=== PATIENT | male | born 1940 | race Hispanic/Latino ===

== ENCOUNTER → 2019-11-15 | Outpatient (CLI) | payer MEDICARE ==
[~2019-11-15] MED LIST: IOPAMIDOL 370 MG/ML 200 ML INFUS..BTL INJ ONE; METOPROLOL TARTRATE 25 MG TAB ONE; NITROGLYCERIN 0.4 MG SUBL ONE; SODIUM CHLORIDE 0.9% 100 ML ONE; SODIUM CHLORIDE 0.9% 250ML 250 ML ONE; SODIUM CHLORIDE 0.9% 500ML 500 ML ONE
[2019-11-15 08:01] LABS: CREATININE, SERUM 1.27 mg/dL (0.72-1.25)
--- NOTE | 2019-11-16 18:44 | Diagnostic Imaging Report ---
EXAM: CALCIUM SCORE AND CORONARY CTA INDICATION: ^[id number] ^[id number] ^CAD/SOB W EXERTION COMPARISON: None. TECHNIQUE: Multi-detector CT technology was employed ([address] 750 HD 64 MDCT [facility]). Minimal slice thickness was performed following the intravenous administration of contrast material. The patient was premedicated with 25 mg po metoprolol and 0.4 mg sublingual nitroglycerin for heart rate control and coronary dilation, respectively. IV CONTRAST: 100 mL of Isovue 370 ORAL CONTRAST: None COMPLICATIONS: None RADIATION DOSE: Total DLP: 1595 mGy*cm Estimated effective dose: (DLP x 0.015 x size factor) mSv CTDIvol has been reviewed. It is below the limits set by the Radiation Protocol Committee (RPC). For optimization of anatomic evaluation, multiplanar reconstruction, maximum intensity projections, and advanced 3-D off-line postprocessing were performed on a dedicated stand-alone workstation under the direct supervision of the interpreting physician. QUALITY: Very good with. The gallbladder is FINDINGS: CALCIUM SCORE: The observed Agatston Calcium Score of 1423 is at percentile between 75 and 90% for subjects of the same age and gender who are free of clinical cardiovascular disease and treated diabetes. The Agatston score for each vessel is as follows: LM: 48.9 LAD: 423 LCx: 232 RCA: 719 DISTRIBUTION OF THE CALCIFIED PLAQUES: Diffuse calcified plaque throughout the coronary arteries, worse in the mid LAD and proximal/mid RCA. CORONARY ANATOMY: There is normal origin of the coronary arteries. Left Main Coronary Artery: The left main is normal sized vessel that bifurcates into the LAD and circumflex. Mild nonobstructing mixed plaque in the proximal segment. Left Anterior Descending Coronary Artery: The LAD is a normal size vessel that wraps around the apex. It gives rise to 2 acute diagonal branches. Complex mainly calcified plaque within the mid LAD, which is times at the origin of the first diagonal branch and measuring 1.2 cm in length, result in severe stenosis (70-99%). The distal segment is normal in caliber and widely patent without atherosclerotic disease. Left Circumflex Coronary Artery: The LCX is a normal size vessel, which is non-dominant. It gives rise to 1 obtuse marginal branch. Focal noncalcified plaque in the mid-LCx that they be groove results in severe stenosis (70-99%). Mild scattered calcified plaques in the remaining LCx without significant stenosis. Right Coronary Artery: The RCA is a normal size vessel, which is dominant. It gives rise to a conus branch, AV shiva branch, and 2 acute marginal branches. In its distal segment it bifurcates into the PDA and PV branch. Motion artifact limits evaluation of the mid RCA at the AV groove but suspect moderate to severe stenosis (60-70%) due to a mainly calcified plaque. Additional few a scattered nonobstructing calcified plaque throughout the RCA. CARDIAC MORPHOLOGY AND FUNCTION: The right and left atria and ventricles are morphologically normal. There is normal resting global left ventricular systolic function. LVEF: 62.6%, LV end diastolic volume: 117 cc LV end systolic volume: 43.7 cc LV stroke volume: 73.3 cc LIMITED CHEST: Limited views of the visualized chest show no abnormality within chest wall and mediastinum. No mediastinal lymphadenopathy. The main pulmonary artery normal in size, measuring 2.7 cm in diameter. The visualized lungs are clear. The visualized portions of the ascending and descending thoracic aorta are of normal size. LIMITED ABDOMEN: Limited images of the upper abdomen reveal no abnormalities of the visualized organs. BONES: No acute osseous abnormalities. IMPRESSION: 1. Total Agatston Calcium Score: 1423 that corresponds to percentile between 75 and 90%, representing extensive plaque burden. 2. Normal coronary anatomy. 3. Three-vessel significant coronary artery disease as described above. CAD-BOBBY 4B. Reference: [email or web address] These findings were communicated to Dr. Quiroga via text message on 11/16/2019 at 6:30 PM. Signed by: Dr. Divine Reynolds M.D. on 11/16/2019 6:41 PM
== END ==
LOC: CT 07:07
PROVIDERS: ATTEND Internal Medicine Interventional Cardiology
DX: I25.10 Atherosclerotic heart disease of native coronary artery without angina pectoris (principal); R06.00 Dyspnea, unspecified
CPT/HCPCS: 36415; 75574; 82565; 84520; J7040; J7050 ×2; Q9967

== ENCOUNTER → 2021-09-10 | Day surgery (SDC) | payer MEDICARE ==
[2021-09-09 09:38] LABS: BASOPHILS # (AUTO) 0.1 (0.0-0.1); BASOPHILS % 0.8 % (0.0-1.0); EOSINOPHILS # (AUTO) 0.3 (0.0-0.4); EOSINOPHILS % 4.3 % (0.0-6.0); HEMATOCRIT 37.5 % (38.2-49.6); HEMOGLOBIN 12.1 g/dL (14.0-18.0); LYMPHOCYTES # (AUTO) 1.4 (1.0-3.2); LYMPHOCYTES % 18.5 % (18.0-39.1); MEAN CORPUSCULAR HEMOGLOBIN 31.3 pg (28-32); MEAN CORPUSCULAR HGB CONC 32.3 g/dL (31-35); MEAN CORPUSCULAR VOLUME 96.9 fL (81-99); MONOCYTES # (AUTO) 0.5 (0.2-0.8); MONOCYTES % 6.5 % (4.4-11.3); NEUTROPHILS # (AUTO) 5.1 (2.1-6.9); NEUTROPHILS % 69.2 % (38.7-80.0); PLATELET COUNT 333 x10e3/uL (140-360); RED BLOOD COUNT 3.87 x10e6/uL (4.3-5.7)
[2021-09-09 09:49] LABS: INR 0.87; PROTHROMBIN TIME 12.7 seconds (11.9-14.5)
[2021-09-09 09:55] LABS: ALBUMIN 3.2 g/dL (3.5-5.0); ALBUMIN/GLOBULIN RATIO 0.7 (0.8-2.0); ANION GAP 12.9 mmol/L (8-16); CALCIUM 8.7 mg/dL (8.4-10.2); CREATININE, SERUM 1.75 mg/dL (0.72-1.25); POTASSIUM 3.9 mmol/L (3.5-5.1)
[2021-09-10] VITALS (9 sets, daily range): BP systolic 140–161; BP diastolic 78–86
[~2021-09-10] VITALS: Ht 162.6 cm; Wt 78.9 kg
[~2021-09-10] MED LIST changes: +ALPRAZOLAM 0.5 MG TAB ONE; +AMLODIPINE BESYL5 MG PO; +BIVALRIUDIN 250 MG/VIAL VIAL IV ONE; +DIPHENHYDRAMINE HCL 25 MG CAP ONE; +FENTANYL CITRATE/PF 100MCG/2 ML INJ ONE; +HEPARIN SOD (PORCINE) 1000 UNIT/ML 30ML ONE; +HEPARIN SOD/SOD CHLORIDE 2,000 ML ONE; +IOPAMIDOL 370 MG/ML 100 ML INFUS..BTL INJ ONE; -IOPAMIDOL 370 MG/ML 200 ML INFUS..BTL INJ ONE; +LIDOCAINE HCL 2% LOCAL 20 ML VIAL ONE; +LOSARTAN POTAS100 MG PO; -METOPROLOL TARTRATE 25 MG TAB ONE; +MIDAZOLAM HCL 2 MG/2 ML VIAL ONE; -NITROGLYCERIN 0.4 MG SUBL ONE; +NITROGLYCERIN/D5W 200 MCG/ML 250 ML ONE; -SODIUM CHLORIDE 0.9% 100 ML ONE; +SODIUM CHLORIDE 0.9% 1000ML 1,000 ML ONE; -SODIUM CHLORIDE 0.9% 250ML 250 ML ONE; -SODIUM CHLORIDE 0.9% 500ML 500 ML ONE; +VERAPAMIL HCL 2.5 MG/ML 2 ML VIAL ONE
== END | disposition home or self-care (01) ==
LOC: CATH LAB 10:35
PROVIDERS: ATTEND Internal Medicine Interventional Cardiology
DX: I25.118 Atherosclerotic heart disease of native coronary artery with other forms of angina pectoris (principal); R94.39 Abnormal result of other cardiovascular function study; R03.0 Elevated blood-pressure reading, without diagnosis of hypertension; Z01.812 Encounter for preprocedural laboratory examination; Z20.822 Contact with and (suspected) exposure to COVID-19; Z79.899 Other long term (current) drug therapy; Z68.30 Body mass index [BMI] 30.0-30.9, adult
CPT/HCPCS: 36415; 76937; 80053; 83880; 85025; 85610; 93458; C1887; C1894; J1644; J2001; J2250; J3010; J7030; Q9967; U0002; 99152; J0583

== ENCOUNTER 2022-03-20 18:06 | Inpatient (IN) | payer MEDICARE ==
[~2022-03-20] VITALS: Ht 165.1 cm; Wt 79.8 kg
[~2022-03-20 18:06] MED LIST changes: -ALPRAZOLAM 0.5 MG TAB ONE; -BIVALRIUDIN 250 MG/VIAL VIAL IV ONE; -DIPHENHYDRAMINE HCL 25 MG CAP ONE; -FENTANYL CITRATE/PF 100MCG/2 ML INJ ONE; -HEPARIN SOD (PORCINE) 1000 UNIT/ML 30ML ONE; -HEPARIN SOD/SOD CHLORIDE 2,000 ML ONE; -IOPAMIDOL 370 MG/ML 100 ML INFUS..BTL INJ ONE; -LIDOCAINE HCL 2% LOCAL 20 ML VIAL ONE; -MIDAZOLAM HCL 2 MG/2 ML VIAL ONE; -NITROGLYCERIN/D5W 200 MCG/ML 250 ML ONE; -SODIUM CHLORIDE 0.9% 1000ML 1,000 ML ONE; -VERAPAMIL HCL 2.5 MG/ML 2 ML VIAL ONE
[2022-03-20] MEDS ORDERED: SODIUM CHLORIDE 0.9% 1000ML 1,000 ML IV ONE ×2 (19:15→21:15)
[2022-03-20] MEDS ORDERED: Morphine 4mg INJECTION 4 MG/ML INJ IV ONE (19:15)
[2022-03-20 19:49] LABS: BASOPHILS # (AUTO) 0.1 (0.0-0.1); BASOPHILS % 0.5 % (0.0-1.0); EOSINOPHILS # (AUTO) 0.3 (0.0-0.4); EOSINOPHILS % 3.1 % (0.0-6.0); HEMOGLOBIN 7.1 g/dL (14.0-18.0); LYMPHOCYTES # (AUTO) 2.1 (1.0-3.2); LYMPHOCYTES % 21.3 % (18.0-39.1); MEAN CORPUSCULAR HEMOGLOBIN 31.6 pg (28-32); MEAN CORPUSCULAR HGB CONC 32.3 g/dL (31-35); MEAN CORPUSCULAR VOLUME 97.8 fL (81-99); MONOCYTES # (AUTO) 0.6 (0.2-0.8); NEUTROPHILS # (AUTO) 6.6 (2.1-6.9); NEUTROPHILS % 68.3 % (38.7-80.0); PLATELET COUNT 303 x10e3/uL (140-360); RED BLOOD COUNT 2.25 x10e6/uL (4.3-5.7); RED CELL DISTRIBUTION WIDTH 12.3 % (11.7-14.4)
[2022-03-20 20:12] LABS: ALBUMIN 3.4 g/dL (3.5-5.0); ALBUMIN/GLOBULIN RATIO 1.1 (0.8-2.0); CALCIUM 8.5 mg/dL (8.4-10.2); CREATININE, SERUM 3.08 mg/dL (0.72-1.25)
[2022-03-20] MEDS ORDERED: SODIUM CHLORIDE 0.9% 1000ML 1,000 ML ONE (21:27)
[2022-03-20] MEDS ORDERED: SODIUM CHLORIDE 0.9% 250ML 250 ML ONE (22:17)
[2022-03-20] MEDS ORDERED: ONDANSETRON HCL INJ 2MG/ML 2ML 2 MG/ML VIAL IV PRN (23:45)
[2022-03-21] VITALS (22 sets, daily range): BP systolic 84–114; BP diastolic 34–63
[2022-03-21] MEDS: OCTREOTIDE ACETATE 500 MCG in SODIUM CHLORIDE 0.9% 250ML 250 ML IV SCH ×4 (00:02→19:46)
[2022-03-21 00:07] LABS: CLARITY,URINE CLEAR (CLEAR); COLOR,URINE YELLOW (YELLOW); LEUKOCYTE ESTERASE ,URINE NEGATIVE (NEGATIVE); NITRITE,URINE NEGATIVE (NEGATIVE); PROTEIN,URINE DIPSTICK NEGATIVE (NEGATIVE)
[2022-03-21 00:08] LABS: BACTERIA,URINE FEW /HPF; EPITHELIAL CELLS,URINE FEW /LPF; KETONES,URINE NEGATIVE (NEGATIVE); RBC,URINE 0-5 /HPF (0-5); URINE UROBILINOGEN 0.2 mg/dL (0.2 - 1); WBC,URINE (MAN) 0-5 /HPF (0-5)
[2022-03-21] MEDS: SODIUM CHLORIDE 0.9% 1000ML 1,000 ML IV SCH ×2 (00:09→08:15)
[2022-03-21 00:27] LABS: PROTHROMBIN TIME 14.1 seconds (11.9-14.5)
[2022-03-21 00:28] LABS: PARTIAL THROMBOPLASTIN TIME 24.6 seconds (23.8-35.5)
[2022-03-21] MEDS ORDERED: ACETAMINOPHEN 325 MG TAB PO PRN (01:45)
[2022-03-21] MEDS ORDERED: HYDRALAZINE HCL 20 MG/ML VIAL IV PRN (01:45)
[2022-03-21] MEDS ORDERED: THIAMINE HCL INJ 100 MG/ML 2ML VIAL IV ONE (01:45)
[2022-03-21] MEDS ORDERED: GUAIFENESIN/DEXTROMETHORPHAN LIQD 5 ML UDC PO PRN (01:45)
[2022-03-21] MEDS ORDERED: MELATONIN 3 MG TAB PO PRN (01:45)
[2022-03-21] MEDS ORDERED: MAGNESIUM/ALUMINUM/SIMETHICONE 30 ML UDC PO PRN (01:45)
[2022-03-21] MEDS ORDERED: PLAVIX75 MG PO (02:52)
[2022-03-21] MEDS ORDERED: ASPIRIN81 MG PO (02:52)
[2022-03-21 03:41] LABS: HEMATOCRIT 23.8 % (38.2-49.6); HEMOGLOBIN 7.7 g/dL (14.0-18.0)
[2022-03-21 06:22] LABS: BASOPHILS # (AUTO) 0.1 (0.0-0.1); BASOPHILS % 0.6 % (0.0-1.0); EOSINOPHILS # (AUTO) 0.4 (0.0-0.4); EOSINOPHILS % 5.1 % (0.0-6.0); HEMATOCRIT 22.1 % (38.2-49.6); HEMOGLOBIN 7.1 g/dL (14.0-18.0); LYMPHOCYTES # (AUTO) 1.3 (1.0-3.2); LYMPHOCYTES % 16.8 % (18.0-39.1); MEAN CORPUSCULAR HEMOGLOBIN 30.9 pg (28-32); MEAN CORPUSCULAR HGB CONC 32.1 g/dL (31-35); MEAN CORPUSCULAR VOLUME 96.1 fL (81-99); MONOCYTES # (AUTO) 0.4 (0.2-0.8); NEUTROPHILS # (AUTO) 5.7 (2.1-6.9); NEUTROPHILS % 71.5 % (38.7-80.0); PLATELET COUNT 227 x10e3/uL (140-360); RED CELL DISTRIBUTION WIDTH 12.4 % (11.7-14.4)
[2022-03-21 07:09] LABS: FERRITIN 262.9 ng/mL (21.81-274.66); FREE THYROXINE INDEX 1.6801 (1.4-3.8); THYROID STIMULATING HORMONE 0.642 uIU/mL (0.350-4.940)
[2022-03-21] MEDS: MIDODRINE 2.5 MG TAB PO SCH ×3 (08:00→15:48)
[2022-03-21 08:04] LABS: ANION GAP 12.8 mmol/L (8-16); CALCIUM 7.9 mg/dL (8.4-10.2); CREATININE, SERUM 2.51 mg/dL (0.72-1.25); POTASSIUM 3.8 mmol/L (3.5-5.1)
[2022-03-21] MEDS: MULTIVITAMINS/MINERALS TAB PO SCH (08:16)
[2022-03-21] MEDS ORDERED: MULTIVITAMINS/MINERALS TAB PO SCH (09:00)
[2022-03-21 10:15] LABS: HEMATOCRIT 22.3 % (38.2-49.6); HEMOGLOBIN 7.3 g/dL (14.0-18.0)
[2022-03-21] MEDS: SODIUM CHLORIDE 0.45% 1,000 ML IV SCH ×2 (14:00→23:55)
[2022-03-21] MEDS ORDERED: ACETAMINOPHEN 650 MG SUPP PR PRN (14:15)
[2022-03-21] MEDS ORDERED: DIAZEPAM INJ 5 MG/ML 2 ML IV PRN (14:15)
[2022-03-21] MEDS: MULTIVITAMINS- 12 INJECTION 10 ML, FOLIC ACID MDV 1 MG, THIAMINE HCL INJ 100 MG in SODI... IV SCH (14:51)
[2022-03-21 15:15] LABS: HEMATOCRIT 22.7 % (38.2-49.6); HEMOGLOBIN 7.2 g/dL (14.0-18.0)
[2022-03-21 16:58] LABS: ABG HCO3 15 mmol/L (22-26); ABG PCO2 28 mmHg (35-45); ABG PH 7.35 (7.35-7.45); ABG PO2 88 mmHg (80-105); ABG TCO2 16
[2022-03-21 19:10] LABS: HEMATOCRIT 22.9 % (38.2-49.6); HEMOGLOBIN 7.4 g/dL (14.0-18.0)
[2022-03-22] VITALS (20 sets, daily range): BP systolic 99–155; BP diastolic 45–68
[2022-03-22 00:20] LABS: HEMATOCRIT 23.4 % (38.2-49.6); HEMOGLOBIN 7.6 g/dL (14.0-18.0)
[2022-03-22] MEDS: OCTREOTIDE ACETATE 500 MCG in SODIUM CHLORIDE 0.9% 250ML 250 ML IV SCH (05:39)
[2022-03-22 05:47] LABS: BASOPHILS % 0.6 % (0.0-1.0); EOSINOPHILS # (AUTO) 0.4 (0.0-0.4); EOSINOPHILS % 5.7 % (0.0-6.0); HEMATOCRIT 23.1 % (38.2-49.6); HEMOGLOBIN 7.5 g/dL (14.0-18.0); LYMPHOCYTES % 15.2 % (18.0-39.1); MEAN CORPUSCULAR HEMOGLOBIN 31.5 pg (28-32); MEAN CORPUSCULAR HGB CONC 32.5 g/dL (31-35); MEAN CORPUSCULAR VOLUME 97.1 fL (81-99); MONOCYTES # (AUTO) 0.5 (0.2-0.8); MONOCYTES % 6.8 % (4.4-11.3); NEUTROPHILS # (AUTO) 4.7 (2.1-6.9); NEUTROPHILS % 70.9 % (38.7-80.0); PLATELET COUNT 256 x10e3/uL (140-360); RED BLOOD COUNT 2.38 x10e6/uL (4.3-5.7); RED CELL DISTRIBUTION WIDTH 12.7 % (11.7-14.4)
[2022-03-22 06:08] LABS: ALBUMIN 2.7 g/dL (3.5-5.0); ANION GAP 14.7 mmol/L (8-16); CALCIUM 7.8 mg/dL (8.4-10.2); CREATININE, SERUM 1.91 mg/dL (0.72-1.25); POTASSIUM 3.7 mmol/L (3.5-5.1)
[2022-03-22 06:31] LABS: CHOL/HDL RATIO 2.8 (3.9-4.7); MAGNESIUM 1.4 MG/DL (1.3-2.1); PHOSPHORUS 2.8 MG/DL (2.3-4.7)
[2022-03-22] MEDS: MIDODRINE 2.5 MG TAB PO SCH ×3 (07:28→19:22)
[2022-03-22] MEDS ORDERED: MAGNESIUM SULFATE 2GM/50ML 50 ML IV ONE ×2 (08:30→10:30)
[2022-03-22] MEDS ORDERED: LOSARTAN POTASSIUM 100 MG TAB PO SCH (09:00)
[2022-03-22] MEDS ORDERED: AMLODIPINE BESYLATE 5 MG TAB PO SCH (09:00)
[2022-03-22] MEDS: MULTIVITAMINS/MINERALS TAB PO SCH (09:18)
[2022-03-22] MEDS ORDERED: LACTATED RINGER'S 1,000 ML INJ ONE (13:45)
[2022-03-22] MEDS: MULTIVITAMINS- 12 INJECTION 10 ML, FOLIC ACID MDV 1 MG, THIAMINE HCL INJ 100 MG in SODI... IV SCH ×2 (14:11→15:09)
[2022-03-22 14:29] LABS: HEMATOCRIT 25.7 % (38.2-49.6); HEMOGLOBIN 8.4 g/dL (14.0-18.0)
[2022-03-22] MEDS ORDERED: ACETAMINOPHEN 325 MG TAB PO PRN (14:45)
[2022-03-22] MEDS ORDERED: TRAMADOL HCL 50 MG TAB PO PRN (14:45)
[2022-03-22] MEDS ORDERED: LIDOCAINE HCL 2% LOCAL INJ 5 ML SDV VIAL INJ ONE (17:17)
[2022-03-22] MEDS ORDERED: PROPOFOL IV EMULSION 10 MG/ML 20 ML VIAL ONE (17:17)
[2022-03-22] MEDS: SODIUM BICARBONATE 650 MG TAB PO SCH (19:22)
[2022-03-22] MEDS ORDERED: LACTATED RINGER'S 1,000 ML ONE (21:20)
[2022-03-23] VITALS (8 sets, daily range): BP systolic 106–120; BP diastolic 51–67
[2022-03-23 05:37] LABS: ANION GAP 12.5 mmol/L (8-16); CALCIUM 8.3 mg/dL (8.4-10.2); CREATININE, SERUM 1.61 mg/dL (0.72-1.25); POTASSIUM 3.5 mmol/L (3.5-5.1)
[2022-03-23] MEDS: SODIUM BICARBONATE 650 MG TAB PO SCH (09:57)
[2022-03-23] MEDS: MIDODRINE 2.5 MG TAB PO SCH ×3 (09:58→16:31)
[2022-03-23] MEDS: MULTIVITAMINS/MINERALS TAB PO SCH (09:58)
[2022-03-23] MEDS ORDERED: POTASSIUM CHLORIDE 20 MEQ TAB CR PO ONE (11:15)
[2022-03-23] MEDS ORDERED: Magnesium/Alum/Simethicone PO (11:27)
[2022-03-23] MEDS ORDERED: Multivitamins/Minerals PO (11:27)
[2022-03-23] MEDS ORDERED: SODIUM BICARBO650 MG PO (11:27)
[2022-03-23] MEDS ORDERED: MIDODRINE HCL2.5 MG PO (11:27)
[2022-03-23] MEDS ORDERED: PROTONIX40 MG PO (11:27)
[2022-03-23 14:45] LABS: HEMOGLOBIN 8.8 g/dL (14.0-18.0)
[2022-03-23] MEDS ORDERED: MULTIVITAMINS- 12 INJECTION 10 ML, FOLIC ACID MDV 1 MG, THIAMINE HCL INJ 100 MG in SODI... IV SCH (19:45)
[2022-03-24] MEDS ORDERED: MULTIVITAMINS- 12 INJECTION 10 ML, FOLIC ACID MDV 1 MG, THIAMINE HCL INJ 100 MG in SODI... IV SCH (09:00)
== END 2022-03-23 19:25 | disposition home or self-care (01) | DRG 377 ==
LOC: ER 18:33 → ERHOLD 23:34 → ICU 03-21 01:24 → MED/SURG2 03-23 18:49
PROVIDERS: ADMIT Internal Medicine; ATTEND Internal Medicine
PROC: 0DB78ZX Excision of Stomach, Pylorus, Via Natural or Artificial Opening Endoscopic, Diagnostic (ICD-10-PCS; principal; 2022-03-20)
PROC: 0DB68ZX Excision of Stomach, Via Natural or Artificial Opening Endoscopic, Diagnostic (ICD-10-PCS; 2022-03-20)
PROC: 30233N1 Transfusion of Nonautologous Red Blood Cells into Peripheral Vein, Percutaneous Approach (ICD-10-PCS; 2022-03-20)
DX: K29.71 Gastritis, unspecified, with bleeding (principal); G92.8 Other toxic encephalopathy; D62 Acute posthemorrhagic anemia; E87.20 Acidosis, unspecified; N17.9 Acute kidney failure, unspecified; I13.0 Hypertensive heart and chronic kidney disease with heart failure and stage 1 through stage 4 chronic kidney disease, or unspecified chronic kidney disease; K20.91 Esophagitis, unspecified with bleeding; F10.20 Alcohol dependence, uncomplicated; E86.0 Dehydration; E87.6 Hypokalemia; E83.42 Hypomagnesemia; Z20.822 Contact with and (suspected) exposure to COVID-19; I25.10 Atherosclerotic heart disease of native coronary artery without angina pectoris; Z87.891 Personal history of nicotine dependence; M19.071 Primary osteoarthritis, right ankle and foot; M77.31 Calcaneal spur, right foot; K44.9 Diaphragmatic hernia without obstruction or gangrene; K25.9 Gastric ulcer, unspecified as acute or chronic, without hemorrhage or perforation; E11.22 Type 2 diabetes mellitus with diabetic chronic kidney disease; N18.9 Chronic kidney disease, unspecified; Z79.01 Long term (current) use of anticoagulants; Z79.82 Long term (current) use of aspirin; F03.90 Unspecified dementia, unspecified severity, without behavioral disturbance, psychotic disturbance, mood disturbance, and anxiety
CPT/HCPCS: 36415; 36600; 43239; 76700; 80048; 80053; 80061; 81001; 82140; 82607; 82728; 82746; 82805; 83036; 83540; 83690; 83735; 84100; 84436; 84443; 84466; 84479; 84550; 85014; 85018; 85025; 85610; 85730; 86592; 86850; 86900; 86920; 87400; 88304; 88305; 88312; 88342; 93005; 93971; 94799; 96360; 99285; J2001; J2353; J3411; J3475; J7030; J7050; J7121; P9016

== ENCOUNTER → 2022-07-30 | Day surgery (SDC) | payer MEDICARE ==
[2022-07-23 08:48] LABS: BASOPHILS # (AUTO) 0.1 (0.0-0.1); BASOPHILS % 1.1 % (0.0-1.0); EOSINOPHILS # (AUTO) 0.3 (0.0-0.4); EOSINOPHILS % 4.5 % (0.0-6.0); HEMATOCRIT 40.8 % (38.2-49.6); LYMPHOCYTES # (AUTO) 1.7 (1.0-3.2); LYMPHOCYTES % 29.9 % (18.0-39.1); MEAN CORPUSCULAR HEMOGLOBIN 27.7 pg (28-32); MEAN CORPUSCULAR HGB CONC 31.9 g/dL (31-35); MONOCYTES # (AUTO) 0.4 (0.2-0.8); MONOCYTES % 7.4 % (4.4-11.3); NEUTROPHILS # (AUTO) 3.1 (2.1-6.9); NEUTROPHILS % 56.6 % (38.7-80.0); PLATELET COUNT 276 x10e3/uL (140-360); RED BLOOD COUNT 4.69 x10e6/uL (4.3-5.7); RED CELL DISTRIBUTION WIDTH 14.7 % (11.7-14.4)
[2022-07-23 09:02] LABS: INR 0.96; PROTHROMBIN TIME 13.3 seconds (11.9-14.5)
[2022-07-23 09:03] LABS: PARTIAL THROMBOPLASTIN TIME 25.3 seconds (23.8-35.5)
[2022-07-23 09:47] LABS: ANION GAP 14.9 mmol/L (8-16); CALCIUM 8.9 mg/dL (8.4-10.2); CREATININE, SERUM 1.83 mg/dL (0.72-1.25); POTASSIUM 3.9 mmol/L (3.5-5.1)
[2022-07-23 10:03] LABS: ALBUMIN 3.4 g/dL (3.5-5.0); ALBUMIN/GLOBULIN RATIO 0.9 (0.8-2.0)
[~2022-07-30] MED LIST changes: +ASPIRIN81 MG PO; +CRESTOR10 MG PO; +HYDROCHLOROTHIA25 MG PO; +LIDOCAINE HCL 2% LOCAL INJ 5 ML SDV VIAL INJ ONE; +METOPROLOL SUCC50 MG PO; +MIDODRINE HCL2.5 MG PO; +Magnesium/Alum/Simethicone PO; +Multivitamins/Minerals PO; +PLAVIX75 MG PO; +PROPOFOL IV EMULSION 10 MG/ML 20 ML VIAL ONE; +PROTONIX20 MG PO; +PROTONIX40 MG PO; +SODIUM BICARBO650 MG PO; +SUCRALFATE1 GM PO
[2022-07-30 12:50] VITALS: BP 110/64
== END | disposition home or self-care (01) ==
LOC: OR 09:10
PROVIDERS: ATTEND Internal Medicine Gastroenterology
DX: Z09 Encounter for follow-up examination after completed treatment for conditions other than malignant neoplasm (principal); K29.50 Unspecified chronic gastritis without bleeding; K25.4 Chronic or unspecified gastric ulcer with hemorrhage; K20.90 Esophagitis, unspecified without bleeding; Z71.3 Dietary counseling and surveillance; I25.10 Atherosclerotic heart disease of native coronary artery without angina pectoris; I10 Essential (primary) hypertension; Z71.89 Other specified counseling; Z01.810 Encounter for preprocedural cardiovascular examination; Z01.812 Encounter for preprocedural laboratory examination; Z79.899 Other long term (current) drug therapy; Z68.34 Body mass index [BMI] 34.0-34.9, adult; Z80.0 Family history of malignant neoplasm of digestive organs
CPT/HCPCS: 36415; 43239; 80053; 85025; 85610; 85730; 88305; 88342; 93005; J2001; J2704; 88312